=== PATIENT | male | born 1955 | race Caucasian/White ===

== ENCOUNTER 2020-08-23 13:50 | Inpatient (IN) ==
[2020-08-23] MEDS ORDERED: CeFAZolin Syr 2,000MG/20 ML 2,000 MG/20 ML SYRINGE IVPB ONE (14:18)
[2020-08-23] MEDS ORDERED: Ringers Solution, Lactated 1,000 ML IVC SCH (14:30)
[2020-08-23] MEDS ORDERED: *HR* Midazolam HCl 2 MG/2 ML VIAL ONE (14:39)
[2020-08-23] MEDS ORDERED: *HR* Propofol 200 MG/20 ML VIAL IVP ONE (14:39)
[2020-08-23] MEDS ORDERED: *HR* FentaNYL (PF) 100 MCG/2 ML VIAL ONE (14:39)
[2020-08-23] MEDS ORDERED: Ondansetron 4 MG/2 ML VIAL ONE (14:40)
[2020-08-23] MEDS ORDERED: *HR* Succinylcholine 200 MG/10 ML VIAL IVP ONE (14:40)
[2020-08-23] MEDS ORDERED: Lidocaine -MPF 2% 2 ML VIAL ONE (14:40)
[2020-08-23] MEDS ORDERED: *HR* Rocuronium Bromide 50 MG/5 ML VIAL ONE (14:40)
[2020-08-23] MEDS ORDERED: *HR* Phenylephrine 10 MG/ML VIAL ONE (14:41)
[2020-08-23] MEDS ORDERED: *HR* Remifentanil 2 MG VIAL IVP ONE (14:46)
[2020-08-23] MEDS ORDERED: Heparin 1,000 UNITS/500 mL 500 ML ONE (14:46)
[2020-08-23] MEDS ORDERED: Famotidine 20 MG/2 ML VIAL IVP ONE (14:58)
[2020-08-23] MEDS ORDERED: Acetaminophen IV 1,000 MG/100 ML BAG IVPB ONE (14:58)
[2020-08-23] MEDS ORDERED: *HR* Metoprolol 5 MG/5 ML VIAL IVP PRN (15:01)
[2020-08-23] MEDS ORDERED: Ondansetron 4 MG/2 ML VIAL IVP PRN (15:01)
[2020-08-23] MEDS ORDERED: *HR* OxyCODONE Immed Rel 5 MG TABLET PO PRN (15:01)
[2020-08-23] MEDS ORDERED: Albuterol 2.5 MG/3 ML NEBULIZER IH PRN (15:01)
[2020-08-23] MEDS ORDERED: *HR* FentaNYL (PF) 100 MCG/2 ML VIAL IVP PRN (15:01)
[2020-08-23] MEDS ORDERED: ceFAZolin 1,000 MG, Sodium Chloride IRRigation 1,000 ML IR ONE (15:15)
[2020-08-23] MEDS ORDERED: *HR* Heparin 5,000 UNIT/ML VIAL ONE (17:02)
[2020-08-23] MEDS ORDERED: Ketorolac 30 MG/ML VIAL ONE (19:09)
[2020-08-23] MEDS ORDERED: flumazeniL 0.5 MG/5 ML VIAL IVP ONE (19:24)
[2020-08-23] MEDS ORDERED: Naloxone 0.4 MG/ML INJ IVP PRN (20:09)
[2020-08-23] MEDS ORDERED: *HR* HYDROcodone/Acet 5/325 mg TABLET PO PRN (20:09)
[2020-08-23] MEDS ORDERED: Acetaminophen 325 MG TABLET PO PRN (20:09)
[2020-08-23] MEDS ORDERED: *HR* Labetalol 20 MG/4 ML SYRINGE IVP PRN (20:09)
[2020-08-23] MEDS: cilostazoL 100 MG TABLET PO SCH (20:48)
[2020-08-23] MEDS ORDERED: Insulin DETEMIR 100 UNIT/ML X5UNITS SUBQ SCH (21:00)
[2020-08-23 21:03] LABS: Basophils % 0.4 %; Eosinophils % 0.1 %; Immature Granulocytes % 0.5 % (0-4); Lymphocytes # 0.8 K/mcL (0.6-4.6); Lymphocytes % 9.9 %; Mean Corpuscular HGB Conc 33.7 g/dL (31.6-35.5); Mean Corpuscular Hemoglobin 32.7 pg (28.0-33.3); Mean Corpuscular Volume 97.1 fL (83.0-100.0); Mean Platelet Volume 8.8 fL (9.4-12.4); Monocytes # 0.2 K/mcL (0.0-1.3); Monocytes % 2.8 %; Platelet Count 156 K/mcL (140-400); Red Blood Count 4.43 M/mcL (4.19-5.50); Red Cell Distribution Width 13.4 % (11.5-14.5); Segmented Neutrophils % 86.3 %; White Blood Count 8.1 K/mcL (4.3-11.1)
[2020-08-23 21:05] LABS: Hemoglobin 14.5 g/dL (12.9-16.9)
[2020-08-24 02:35] LABS: BUN/Creatinine Ratio 24 (6-26); Blood Urea Nitrogen 25 mg/dL (8-23); Carbon Dioxide 22 mEq/L (23-29); Chloride 105 mEq/L (98-107); Glucose 253 mg/dL (70-105); Osmolality,Calculated 293 (280-300); Potassium 4.1 mEq/L (3.5-5.1); Sodium 135 mEq/L (136-145); eGFR For African Americans > 60 (> 60); eGFR For Non-African Americans > 60 (> 60)
[2020-08-24] MEDS: cilostazoL 100 MG TABLET PO SCH (07:59)
[2020-08-24] MEDS: CeFAZolin 2 GM/120 ML BAG IVPB SCH ×3 (07:59→17:21)
[2020-08-24] MEDS ORDERED: NON-FORMULARY MEDICATION 1 EACH EACH (Cinnamon Bark [Cinnamon] 500 MG Capsule) PO SCH (08:00)
[2020-08-24] MEDS ORDERED: Loratadine 10 MG TABLET PO SCH (09:00)
[2020-08-24] MEDS ORDERED: Multivit/Ca/Min/Fe/FA 1 TAB TABLET PO SCH (09:00)
[2020-08-24 16:23] VITALS: BP 160/71
== END 2020-08-24 17:52 | disposition home or self-care (01) | DRG 39 ==
LOC: SAMDAY 13:50 → 2NNU 20:29
PROVIDERS: ADMIT Surgery Vascular Surgery; ATTEND Surgery Vascular Surgery

== ENCOUNTER 2020-09-13 06:48 | Inpatient (IN) ==
[~2020-09-13 06:48] MED LIST: ceFAZolin 1,000 MG, Sodium Chloride IRRigation 1,000 ML IR ONE
[2020-09-13] MEDS ORDERED: Heparin 1,000 UNITS/500 mL 500 ML ONE ×2 (07:16→09:16)
[2020-09-13] MEDS ORDERED: Lidocaine -MPF 4% 5 ML AMPUL ONE (07:19)
[2020-09-13] MEDS ORDERED: *HR* Remifentanil 1 MG VIAL IVP ONE ×3 (07:25→11:34)
[2020-09-13] MEDS ORDERED: *HR* Rocuronium Bromide 50 MG/5 ML VIAL ONE (07:25)
[2020-09-13] MEDS ORDERED: *HR* Phenylephrine 10 MG/ML VIAL ONE (07:25)
[2020-09-13] MEDS ORDERED: Ondansetron 4 MG/2 ML VIAL ONE (07:25)
[2020-09-13] MEDS ORDERED: EPHEDrine 50 MG/ML VIAL ONE (07:25)
[2020-09-13] MEDS ORDERED: *HR* FentaNYL (PF) 100 MCG/2 ML VIAL ONE (07:25)
[2020-09-13] MEDS ORDERED: *HR* Succinylcholine 200 MG/10 ML VIAL IVP ONE (07:25)
[2020-09-13] MEDS ORDERED: Lidocaine -MPF 2% 2 ML VIAL ONE ×2 (07:25→08:24)
[2020-09-13] MEDS ORDERED: *HR* Propofol 200 MG/20 ML VIAL IVP ONE (07:26)
[2020-09-13] MEDS ORDERED: CeFAZolin Syr 2,000MG/20 ML 2,000 MG/20 ML SYRINGE IVPB ONE (07:32)
[2020-09-13] MEDS ORDERED: *HR* HYDROmorphone PF 0.5 MG/0.5 ML SYRINGE IVP PRN (07:55)
[2020-09-13] MEDS ORDERED: Ondansetron 4 MG/2 ML VIAL IVP PRN ×2 (07:55→15:10)
[2020-09-13] MEDS ORDERED: *HR* OxyCODONE Immed Rel 5 MG TABLET PO PRN ×2 (07:55→15:10)
[2020-09-13] MEDS ORDERED: NiCARdipine 2.5 MG/10 ML Syringe IVPB ONE (07:58)
[2020-09-13] MEDS ORDERED: *HR* Vasopressin 20 UNIT/ML VIAL ONE (07:58)
[2020-09-13] MEDS ORDERED: Heparin 1,000 UNITS/500 mL 1,000 ML ONE (08:00)
[2020-09-13] MEDS ORDERED: Protamine Sulfate 50 MG/5 ML VIAL IVP ONE (08:00)
[2020-09-13] MEDS ORDERED: Acetaminophen IV 1,000 MG/100 ML BAG IVPB ONE (08:12)
[2020-09-13] MEDS ORDERED: Ringers Solution, Lactated 1,000 ML IVC SCH (08:15)
[2020-09-13] MEDS ORDERED: *HR* Heparin 5,000 UNIT/ML VIAL ONE (09:17)
[2020-09-13] MEDS ORDERED: *HR* Labetalol 20 MG/4 ML SYRINGE IVP PRN ×2 (13:43→15:10)
[2020-09-13] MEDS ORDERED: Acetaminophen 325 MG TABLET PO PRN (15:10)
[2020-09-13] MEDS ORDERED: *HR* HYDROcodone/Acet 5/325 mg TABLET PO PRN (15:10)
[2020-09-13] MEDS ORDERED: Naloxone 0.4 MG/ML INJ IVP PRN (15:10)
[2020-09-13] MEDS: CeFAZolin 2 GM/120 ML BAG IVPB SCH (15:51)
[2020-09-13] MEDS ORDERED: *HR* Metformin 500 MG TABLET PO SCH (17:00)
[2020-09-13] MEDS ORDERED: Insulin DETEMIR 100 UNIT/ML X5UNITS SUBQ SCH ×2 (21:00)
[2020-09-13] MEDS ORDERED: cilostazoL 100 MG TABLET PO SCH (21:00)
[2020-09-13] MEDS ORDERED: Insulin LISPRO 300 UNITS/3 ML VIAL SUBQ SCH (21:00)
[2020-09-13] MEDS: Insulin LISPRO 300 UNITS/3 ML VIAL SUBQ SCH (21:34)
[2020-09-13] MEDS: cilostazoL 100 MG TABLET PO SCH (21:34)
[2020-09-14] MEDS: CeFAZolin 2 GM/120 ML BAG IVPB SCH ×2 (00:35→07:57)
[2020-09-14 01:09] LABS: Basophils % 0.2 %; Eosinophils % 0.1 %; Hematocrit 38.8 % (37.5-50.1); Immature Granulocytes % 0.3 % (0-4); Lymphocytes # 1.5 K/mcL (0.6-4.6); Lymphocytes % 16.2 %; Mean Corpuscular HGB Conc 33.2 g/dL (31.6-35.5); Mean Corpuscular Hemoglobin 33.2 pg (28.0-33.3); Mean Corpuscular Volume 99.7 fL (83.0-100.0); Mean Platelet Volume 8.4 fL (9.4-12.4); Monocytes # 0.6 K/mcL (0.0-1.3); Monocytes % 6.6 %; Neutrophils # 7.1 K/mcL (1.6-8.9); Platelet Count 163 K/mcL (140-400); Red Blood Count 3.89 M/mcL (4.19-5.50); Red Cell Distribution Width 14.3 % (11.5-14.5); Segmented Neutrophils % 76.6 %; White Blood Count 9.3 K/mcL (4.3-11.1)
[2020-09-14 01:10] LABS: Hemoglobin 12.9 g/dL (12.9-16.9)
[2020-09-14 01:29] LABS: BUN/Creatinine Ratio 10 (6-26); Blood Urea Nitrogen 11 mg/dL (8-23); Calcium 8.3 mg/dL (8.6-10.3); Carbon Dioxide 26 mEq/L (23-29); Chloride 106 mEq/L (98-107); Glucose 191 mg/dL (70-105); Osmolality,Calculated 295 (280-300); Potassium 4.3 mEq/L (3.5-5.1); Sodium 140 mEq/L (136-145); eGFR For African Americans > 60 (> 60); eGFR For Non-African Americans > 60 (> 60)
[2020-09-14] MEDS: cilostazoL 100 MG TABLET PO SCH (07:56)
[2020-09-14] MEDS: Insulin LISPRO 300 UNITS/3 ML VIAL SUBQ SCH (07:57)
[2020-09-14] MEDS ORDERED: *HR* Metformin 500 MG TABLET PO SCH (08:00)
[2020-09-14] MEDS ORDERED: *HR* Dextrose 50 % in Water (Vial) 50 ML VIAL IVP PRN (08:13)
[2020-09-14] MEDS ORDERED: D5% in Water 1,000 ML IVC PRN (08:13)
[2020-09-14] MEDS ORDERED: Dextrose Gel 15 GM/37.5 ML TUBE PO PRN ×2 (08:13)
[2020-09-14] MEDS ORDERED: lisinopriL 10 MG TABLET PO SCH ×2 (09:00)
[2020-09-14] MEDS ORDERED: Loratadine 10 MG TABLET PO SCH ×2 (09:00)
[2020-09-14 11:10] VITALS: BP 114/65
[2020-09-14] MEDS ORDERED: Insulin LISPRO 300 UNITS/3 ML VIAL SUBQ SCH (17:00)
== END 2020-09-14 15:00 | disposition home or self-care (01) | DRG 39 ==
LOC: SAMDAY 06:48 → 2NNU 13:34
PROVIDERS: ADMIT Surgery Vascular Surgery; ATTEND Surgery Vascular Surgery